=== PATIENT | male | born 1970 | race Caucasian/White ===

== ENCOUNTER 2016-12-05 07:15 | Day surgery (SDC) | payer OTHER ==
[~2016-12-05] VITALS: Ht 177.8 cm; Wt 88.0 kg
[~2016-12-05 07:15] MED LIST: ZYRTEC10 M3 PO
[2016-12-05 07:48] VITALS: BP 127/86
[2016-12-05] MEDS ORDERED: NORCO 5/3251 TABLET PO (10:13)
[2016-12-05 11:04] VITALS: BP 137/92
[2016-12-05 11:37] VITALS: BP 123/81
== END 2016-12-05 11:45 | disposition home or self-care (01) ==
LOC: SDC 07:15
PROC: 0DBQXZZ Excision of Anus, External Approach (ICD-10-PCS; principal; 2016-12-05)
DX: K64.4 Residual hemorrhoidal skin tags (principal); F41.9 Anxiety disorder, unspecified; Z86.010 Personal history of colon polyps; Z82.49 Family history of ischemic heart disease and other diseases of the circulatory system; J45.909 Unspecified asthma, uncomplicated
CPT/HCPCS: 88304; J1100; J2250; J2405; J3010; S0020